=== PATIENT | male | born 1935 | race Caucasian/White ===

== ENCOUNTER 2022-07-12 09:20 | Day surgery (SDC) | payer MEDICARE, BC ==
[~2022-07-12] VITALS: Ht 175.3 cm; Wt 79.5 kg
[2022-07-12] VITALS (10 sets, daily range): BP systolic 123–160; BP diastolic 46–71
[~2022-07-12 09:20] MED LIST: ALLO300T8 PO; ASPI81TA52 PO; CHOL500050 PO; CLOP75TA34 PO; ENAL20TA77 PO; ESOM20CA PO; FLO0.4C PO; MAGN250T11 PO; METO-395 PO; ROSU20TA2 PO; Vitamin B12 SL
[2022-07-12] MEDS ORDERED: normal saline 1000ml 1,000 ML IV SCH (09:50)
[2022-07-12] MEDS ORDERED: ceFAZolin inj. 2,000 MG in dextrose 5%-water 100 ML IV ONE (09:50)
[2022-07-12 10:14] LABS: BASOPHILS # (AUTO) 0.1 X10'3 (0-0.2); BASOPHILS % (AUTO) 1.1 % (0-1); EOSINOPHILS # (AUTO) 0.2 X10'3 (0-0.9); EOSINOPHILS % (AUTO) 2.1 % (0-6); HEMATOCRIT 41.1 % (42.0-52.0); HEMOGLOBIN 13.4 g/dl (14.0-17.9); LYMPHOCYTES # (AUTO) 1.5 X10'3 (1.1-4.8); MEAN CORPUSCULAR HEMOGLOBIN 29.3 PG (27.0-31.0); MEAN CORPUSCULAR HGB CONC 32.7 g/dL (33.0-36.5); MEAN CORPUSCULAR VOLUME 89.4 FL (78-98); MEAN PLATELET VOLUME 8.5 FL (7.4-10.4); MONOCYTES # (AUTO) 0.6 X10'3 (0-0.9); MONOCYTES % (AUTO) 7.6 % (2-12); NEUTROPHILS # (AUTO) 5.9 X10'3 (1.8-7.7); NEUTROPHILS % (AUTO) 71.2 % (42-75); PLATELET COUNT 226 X10'3 (140-440); RED BLOOD COUNT 4.59 X10'6 (4.70-6.10); RED CELL DISTRIBUTION WIDTH 15.8 % (11.5-14.5); WHITE BLOOD COUNT 8.3 X10'3 (4.5-11.0)
[2022-07-12 10:17] LABS: ALBUMIN 3.6 G/DL (3.4-5.0); ANION GAP 13 (8-16); BLOOD UREA NITROGEN 18 MG/DL (7-18); BUN/CREATININE RATIO 18.9 (5.4-32.0); CHLORIDE 106 MMOL/L (99-107); CREATININE 0.95 MG/DL (0.60-1.10); GLUCOSE 110 MG/DL (70-104); POTASSIUM 3.9 MMOL/L (3.5-5.1); SODIUM 146 MMOL/L (135-145); eGFR 75 ML/MIN
[2022-07-12] MEDS ORDERED: ASCO1TAB PO (10:17)
[2022-07-12 10:22] LABS: APTT 27 SECONDS (22-32)
[2022-07-12] MEDS ORDERED: LIDOCAINE 1%/EPI 1:100,000 inj. 10 ML multi-dose vial ONE (11:56)
[2022-07-12] MEDS ORDERED: midazolam 1 mg/ML 2ml injection ONE (11:56)
[2022-07-12] MEDS ORDERED: fentaNYL/PF 50MCG/1 ML 2ML syringe ONE (11:56)
[2022-07-12] MEDS ORDERED: ceFAZolin 1000mg inj ONE (11:57)
[2022-07-12] MEDS ORDERED: HYDROcodone/acetaminophen 5mg/325mg tablet PO PRN (14:35)
[2022-07-12] MEDS ORDERED: HYDROcodone/acetaminophen 10/325mg tab PO PRN (14:35)
[2022-07-12] MEDS ORDERED: vancomycin/NS 1 GM in NS 250 ML IV ONE (15:00)
[2022-07-12] MEDS ORDERED: potassium Cl 20 mEq SR tablet PO STA (17:21)
[2022-07-12] MEDS ORDERED: carVEDilol 3.125mg tablet PO STA (17:21)
--- NOTE | 2022-07-12 17:23 | NUR ---
Betzy charge nurse notified Dr. Solomon of frequent PVC's on bedside heart monitor. Received orders to administer Carvedilol 6.25 mg x 1 now and if K+ is less than 4.0 replace potassium per protocol. Will administer Potassium 20 mEq po x1 now. Will cont. to monitor.
[2022-07-12] MEDS ORDERED: carvedilol 6.25mg tablet PO STA (17:25)
--- NOTE | 2022-07-12 18:26 | NUR ---
Paged Dr. 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 Bruise dark purple, soft to touch and about 3.5 inches in length. Patient denies pain to bruise. Surgical incision site drainage is half dollar in size. Patient on plavix. Wanting to make Dr. Solomon aware for further orders. Waiting on callback.
--- NOTE | 2022-07-12 18:35 | NUR ---
Received call from Dr. Akers. States it's okay to discharge patient, monitor site and if anything worsens to call Dr. Solomon. Attempted to page Dr. Solomon again as he likes to be paged for his patients. Called after-hours service desk to page Dr. Solomon and Dr. Akers responded to call again. Will send patient home with instruction to call Dr. Solomon if site shows signs of a hematoma, infection or any other abnormal symptoms. Patient is stable.
--- NOTE | 2022-07-12 19:50 | NUR ---
Dr. Akers showed up to [facility] to see if we had discharged Dr. Solomon's pacemaker patient. We let him know that we did and then Dr. Akers left.
== END 2022-07-12 19:20 | disposition home or self-care (01) ==
LOC: SSTAY O 09:20
PROVIDERS: ATTEND Internal Medicine Cardiovascular Disease
DX: I49.5 Sick sinus syndrome (principal); I10 Essential (primary) hypertension; I25.10 Atherosclerotic heart disease of native coronary artery without angina pectoris; I48.91 Unspecified atrial fibrillation; J45.909 Unspecified asthma, uncomplicated; E83.119 Hemochromatosis, unspecified; I87.2 Venous insufficiency (chronic) (peripheral); Z85.79 Personal history of other malignant neoplasms of lymphoid, hematopoietic and related tissues; F17.200 Nicotine dependence, unspecified, uncomplicated; F10.10 Alcohol abuse, uncomplicated; Z79.899 Other long term (current) drug therapy; Z98.890 Other specified postprocedural states
CPT/HCPCS: 33208; 36415; 71046; 80048; 85025; 85610; 85730; 93005; 99152; 99153; C1785; C1894; C1898; J0690; J2250; J3010; J3370; J3490; J7030; A6449